=== PATIENT | female | born 1995 | race Hispanic/Latino ===

== ENCOUNTER 2018-08-16 10:48 | Emergency (ER) | payer MEDICAID, OTHER ==
--- NOTE | 2018-08-16 14:40 | ULT ---
PELVIC SONOGRAM WITH DUPLEX EVALUATION: Date: 08/16/18 HISTORY: Pelvic pain. FINDINGS: The urinary bladder is incompletely distended. Uterus has a homogeneous echotexture and is 6.5 cm. En dometrium is 0.8 cm. Minimal free fluid in the cul-de-sac. Physiologic amount. Right ovary is 2.7 cm length and left ovary is 2.8 cm. Small follicles associated with each ovary. Go od color and spectral Doppler flow. IMPRESSION: No significant abnormalities demonstrated. No visualized. POS: [facility]
== END 2018-08-16 14:37 | disposition home or self-care (01) ==
LOC: ERS 10:48
DX: R10.30 Lower abdominal pain, unspecified (principal); Z87.891 Personal history of nicotine dependence
CPT/HCPCS: 36415; 76856; 84702; 86900; 86901; 87480; 87510; 87660

== ENCOUNTER 2019-07-27 19:09 | Day surgery (SDC) | payer OTHER ==
[2019-07-27] MEDS ORDERED: hydrALAZINE 20 MG/ML VIAL SLOW IVP PRN (19:42)
--- NOTE | 2019-07-27 19:44 | PDOC.LDHP ---
Labor and Delivery H&P Chief complaint: contractions (sex within last 24 hrs (yesterday AM and PM)), loss of fluid (small leaks but no large gush of fluid, no VB) HPI: 23 yo with EDC 12/2 at 31.2 weeks with some few CTX and possible lof for a few days, but good FM, no gush of fluid, no VB. No fevers Current gestational age (weeks): 31 (2days) Due date: 09/26/19 Dating criteria: last menstrual period Grav: 2 Para: 0 OB History Details: SAB Jul 2018 Current complications: none Abnormal US findings: No Current medications: pre-patience vitamins Previous surgical history: none Allergies/Adverse Reactions: Allergies Allergy/AdvReac Type Severity Reaction Status Date / Time amoxicillin Allergy Verified 07/27/19 19:35 Penicillins Allergy Verified 07/27/19 19:35 - Physical Exam Vital signs reviewed and normal: yes (131/70 80 afebrile) General: NAD Heart: RRR Abdomen: gravid FHT: category 1, variability present [place] contractions every: none - Vaginal Exam cm dilated: 0 (visually closed) - Assessment 31 weeks discomforts of , . Recent sexual activity. Yeast infection on speculum exam. - Plan Plan: observation in L&D (SSE performed by me: valsalva neg, no evidence ROM, yeast noted visually (will order Diflucan x 1). sent anyway as lab confirmation, and we will order TVCL for record.)
[2019-07-27 19:55] VITALS: BP 131/70; TEMP 98.8; BMI 30.2
[2019-07-27 20:08] LABS: Amnisure Test No Membranes Rupture (No Rupture)
[2019-07-27 20:09] LABS: Amnisure Internal Control QC ACCEPTABLE (ACCEPTABLE)
[2019-07-27] MEDS ORDERED: FLU VACC QS2019-20(6MOS UP)/PF 60 MCG/0.5 ML SYRINGE IM ONE (21:00)
--- NOTE | 2019-07-27 21:10 | PDOC.EVN ---
Event Note - Event Note Event Note: NEG CX by manuel 3.6cm OK for DC home
[2019-07-27] MEDS: Fluconazole 100 MG TAB PO SCH ×2 (21:11→21:12)
--- NOTE | 2019-07-27 21:31 | ULT ---
ULTRASOUND OBSTETRICAL LIMITED: DATE: 07/27/2019 HISTORY: 23-year-old female in third trimester with uterine contractions. Specific informati on needed is cervical length. FINDINGS: number: gay lie: Cephalic Maternal cervix: 3.7 cm. Closed. Placenta: Anterior. No placenta previa. heart rate: 152 bpm Amniotic fluid volume: PAGE not measured. anatomy: Not evaluated biometry: Not evaluated IMPRESSION: 1) Live 3rd trimester intrauterine gestation. 2) maternal cervix closed and 3.7 cm in length. 3) cephalic lie.
== END 2019-07-27 21:35 | disposition home or self-care (01) ==
LOC: L&D/OP 19:09
PROVIDERS: ATTEND Student in an Organized Health Care Education/Training Program
DX: O47.03 False labor before 37 completed weeks of gestation, third trimester (principal); O99.89 Other specified diseases and conditions complicating pregnancy, childbirth and the puerperium; N89.8 Other specified noninflammatory disorders of vagina; O98.813 Other maternal infectious and parasitic diseases complicating pregnancy, third trimester; B37.9 Candidiasis, unspecified; Z3A.31 31 weeks gestation of pregnancy; Z88.0 Allergy status to penicillin
CPT/HCPCS: 76856; 84112; 99284

== ENCOUNTER 2019-08-19 02:04 | Day surgery (SDC) | payer OTHER ==
[2019-08-19 02:34] VITALS: BMI 29.2
[2019-08-19] MEDS ORDERED: hydrALAZINE 20 MG/ML VIAL SLOW IVP PRN (04:06)
--- NOTE | 2019-08-19 06:39 | ER ---
DATE OF SERVICE: 08/19/2019 OB ED NOTE: TIME OF SERVICE: 0410 hours. PRESENTING COMPLAINT: Vaginal bleeding after intercourse at 34 weeks gestation. HISTORY OF PRESENT ILLNESS: The patient presents complaining of vaginal spotting after intercourse this evening. She denies contractions. She denies discharge. She reports active fetus. OBSTETRIC HISTORY: Patient is seen at [facility] since February. The patient was originally seen by Dr. Tierra Milner, but changed doctors over personality conflicts. Ultrasound reveals AGA baby at last exam. The patient has a history of recreational drug use disorder with positive urine drug screens during . Last urine drug screen was in June and was negative for cannabinoids, which is the patient's street drug of choice. Blood type A negative, antibody negative. Pap negative. Rubella immune. VDRL nonreactive. Group B strep positive urine. The patient has a history of genital herpes. Has not started her suppression at this time. PAST MEDICAL HISTORY: Mild asthma. PAST SURGICAL HISTORY: None. ALLERGIES: AMOXICILLIN. MEDICATIONS: vitamins and sertraline 50 mg p.o. daily. SOCIAL HISTORY: Denies current tobacco, alcohol, or drug abuse. FAMILY HISTORY: Noncontributory. REVIEW OF SYSTEMS: Noncontributory. PHYSICAL EXAMINATION: GENERAL: The patient and her partner are in the exam room. Exam room reeks of marijuana. The patient does not seem obviously intoxicated. VITAL SIGNS: Temperature 98.5, respirations 18, blood pressure 122/82, and pulse 85. HEENT: Within normal limits. LUNGS: Clear to auscultation bilaterally. HEART: Regular rate and rhythm. ABDOMEN: Soft and nontender with a fundal height of 34 cm. FHTs are 140s. Vulva without lesions. Speculum exam reveals vagina that is without discharge with mild leukorrhea of . The cervix is visually closed. EXTREMITIES: Without clubbing, cyanosis, or edema. Prolonged monitoring was carried out. No contractions were noted. Positive accelerations. No decelerations, category 1 heart rate tracing. IMPRESSION: 1. Vaginal spotting with no current bleeding and no evidence of labor status post intercourse at 34 weeks gestation. 2. History of recreational drug use. Current encounter would reflect partner drug use, but no evidence of active drug use at this time by patient. PLAN: Discharge home. The patient has scheduled followup with Dr. Porter this morning at [facility]. The patient is encouraged to avoid use of cannabinoids or other recreational drugs during the remainder of . Job ID: [id number]
[2019-08-19] MEDS ORDERED: FLU VACC QS2019-20(6MOS UP)/PF 60 MCG/0.5 ML SYRINGE IM ONE (09:00)
== END 2019-08-19 04:10 | disposition home or self-care (01) ==
LOC: L&D/OP 02:04
PROVIDERS: ATTEND Student in an Organized Health Care Education/Training Program
DX: O26.853 Spotting complicating pregnancy, third trimester (principal); Z3A.34 34 weeks gestation of pregnancy; Z79.899 Other long term (current) drug therapy; Z88.0 Allergy status to penicillin
CPT/HCPCS: 99282

== ENCOUNTER 2019-09-18 23:48 | Inpatient (IN) | payer OTHER ==
[2019-09-19 00:28] VITALS: BMI 31.8
[2019-09-19 00:30] LABS: Amnisure Internal Control QC ACCEPTABLE (ACCEPTABLE)
[2019-09-19 00:38] LABS: Amnisure Test No Membranes Rupture (No Rupture)
[2019-09-19] MEDS ORDERED: Lidocaine 1% (PF) 30 ML VIAL SC PRN (00:55)
[2019-09-19] MEDS ORDERED: Ibuprofen 800 MG TAB PO PRN (00:55)
[2019-09-19] MEDS ORDERED: hydrALAZINE 20 MG/ML VIAL SLOW IVP PRN ×2 (00:55→19:28)
[2019-09-19] MEDS ORDERED: Methylergonovine 0.2 MG/ML VIAL IM PRN (00:55)
[2019-09-19] MEDS ORDERED: Ondansetron PF 4 MG/2 ML Vial IVP PRN ×3 (00:55→19:28)
[2019-09-19] MEDS ORDERED: Promethazine HCl 25 MG/ML VIAL IM PRN ×3 (00:55→19:28)
[2019-09-19] MEDS ORDERED: Acetaminophen/Codeine 30-300mg Tablet PO PRN ×2 (00:55)
[2019-09-19] MEDS ORDERED: Misoprostol 200 MCG TAB PR PRN (00:55)
[2019-09-19] MEDS ORDERED: Zolpidem Tartrate 5 MG TAB PO PRN (00:55)
--- NOTE | 2019-09-19 01:00 | PDOC.LDHP ---
Labor and Delivery H&P Chief complaint: contractions HPI: 23 yo LAF c/o painful UCs since 10 PM. Scheduled for induction for tonight. Current gestational age (weeks): 39 Due date: 09/26/19 Dating criteria: last menstrual period Grav: 1 Para: 0 OB History Details: PNC with DR. Porter w/o complications. Current complications: none Abnormal US findings: No Current medications: pre- vitamins Previous surgical history: none Allergies/Adverse Reactions: Allergies Allergy/AdvReac Type Severity Reaction Status Date / Time amoxicillin Allergy Verified 09/19/19 00:24 Penicillins Allergy Verified 07/27/19 19:35 Social history: none - Physical Exam Vital signs reviewed and normal: yes General: resting Heart: RRR Lungs: CTAB Abdomen: gravid Extremeties: trace edema FHT: category 1 [place] contractions every: q 2-3 mins - Vaginal Exam cm dilated: 3 Effacement: 90% Station: -1 - OB Labs GBS: positive - Assessment L&D Assessment: term patient in labor - Plan Plan: admit to L&D, GBS antibiotic prophylaxis, informed consent obtained (Dr. Porter notified of admit.)
[2019-09-19] MEDS ORDERED: NS w/ Oxytocin 10 units 500 ML IV SCH (01:30)
[2019-09-19] MEDS ORDERED: Lactated Ringer's 1,000 ML IV SCH (01:30)
[2019-09-19] MEDS: ceFAZolin 1 GM/D5W 1 GM in Premix Bag 1 BAG IVPB SCH ×3 (01:48→20:47)
[2019-09-19 01:54] LABS: Hemoglobin 12.1 g/dL (12.0-16.0); Mean Corpuscular HGB CONC 33.8 g/dL (32.0-36.0); Mean Corpuscular Hemoglobin 29.7 pg (27.0-31.0); Mean Corpuscular Volume 87.8 fL (78.0-98.0); Mean Platelet Volume 9.3 fL (7.4-10.4); Platelet Count 229 thou/uL (130-400); RBC Distribution Width 13.3 % (11.5-14.5); Red Blood Cell (RBC) Count 4.06 mill/uL (4.20-5.40); White Blood Cell (WBC) Count 17.4 thou/uL (4.8-10.8)
[2019-09-19 02:33] LABS: HBSAg Index 0.14 S/CO (0-0.99); Hep B Surf Ag Non-Reactive S/CO (NonReactive)
[2019-09-19] MEDS: Butorphanol Tartrate 1 MG/ML VIAL SLOW IVP PRN ×2 (02:57→05:05)
[2019-09-19 04:12] LABS: Syphilis Antibody Nonreactive (Nonreactive); Syphilis Antibody Index 0.03 S/CO (<1.00 Non-Reactive)
[2019-09-19 05:40] LABS: ALT (SGPT) 16 U/L (8-55); AST (SGOT) 15 U/L (5-34); Albumin 3.8 g/dL (3.5-5.0); Alkaline Phosphatase 293 U/L (40-110); Anion Gap 15 mmol/L (10-20); BUN (Urea Nitrogen) 8 mg/dL (7.0-18.7); Bilirubin, Total 0.3 mg/dL (0.2-1.2); Calc. Creatinine Clearance 160 mL/min (70-130); Calcium 9.3 mg/dL (7.8-10.44); Carbon Dioxide 19 mmol/L (22-29); Chloride 105 mmol/L (98-107); Estimated GFR-MDRD Greater than 90; Globulin 2.9 g/dL (2.4-3.5); Glucose 98 mg/dL (70-105); Potassium 3.9 mmol/L (3.5-5.1); Protein, Total 6.7 g/dL (6.0-8.3); Sodium 135 mmol/L (136-145)
[2019-09-19 06:07] LABS: Amphetamine Not Detected (NotDetected); Barbiturates Screen Not Detected (NotDetected); Benzodiazepine Screen Not Detected (NotDetected); Cocaine Metabolite Screen Not Detected (NotDetected); Medtox Control Line Valid? VALID (VALID); Medtox Reader # READER 4; Methadone Not Detected (NotDetected); Methamphetamine Not Detected (NotDetected); Opiate Screen Not Detected (NotDetected); Oxycodone Screen Not Detected (NotDetected); Phencyclidine (PCP) Not Detected (NotDetected); THC/Cannabinoid Screen Detected (NotDetected); Tricyclic Screen Not Detected (NotDetected)
[2019-09-19 06:30] LABS: Creatinine, Urine 23.13 mg/dL (47-110); Protein, Urine Random Quant Less than 10 mg/dL (1-14)
[2019-09-19] MEDS ORDERED: Fentanyl 4 mcg/Bup 0.1% Cadd 100 ML ONE ×2 (06:34→13:27)
[2019-09-19] MEDS ORDERED: Fentanyl 100 MCG/2 ML VIAL ONE (06:44)
--- NOTE | 2019-09-19 09:52 | PDOC.LDPN ---
Labor & Delivery Progress Note - Subjective Subjective: comfortable - Objective Vital signs reviewed and normal: yes General: NAD Uterine fundus: non tender Dilation: 5 Effacement: 90% Station: -1 FHT: category 1 [place] contractions every: 4min AROM: clear fluid Plan: labor augmentation
[2019-09-19] MEDS: Lactated Ringer's 1,000 ML IV SCH ×2 (09:57→19:32)
[2019-09-19] MEDS ORDERED: Lactated Ringer's 500 ML IV PRN (12:10)
[2019-09-19] MEDS ORDERED: Naloxone HCl 0.4 mg/ml Vial IVP PRN ×2 (12:10)
[2019-09-19] MEDS ORDERED: ePHEDrine/0.9% NaCl/PF SYRINGE 50 mg/10 ml SLOW IVP PRN (12:10)
[2019-09-19] MEDS ORDERED: Acetaminophen 325 MG TAB PO PRN (12:10)
[2019-09-19] MEDS ORDERED: diphenhydrAMINE 50 MG/ML VIAL IVP PRN (12:10)
[2019-09-19] MEDS ORDERED: Fentanyl 4 mcg/Bupivacaine 0.1% Cassette 100 ML EPIDURAL SCH (12:15)
[2019-09-19] MEDS ORDERED: Communication Order-Pharmacy FS SCH (12:15)
[2019-09-19] MEDS ORDERED: Acetaminophen 500 MG TAB PO PRN (13:38)
[2019-09-19] MEDS ORDERED: Gentamicin 20 MG/2 ML PF (Neonates) IVPB SCH (13:45)
[2019-09-19] MEDS ORDERED: Gentamicin Sulfate 290 MG in Sodium Chloride 0.9% 100 ML IVPB SCH (15:00)
[2019-09-19] MEDS: NS / Oxytocin 40 units/1000ml 1,000 ML IV PRN ×2 (16:15→17:40)
--- NOTE | 2019-09-19 17:24 | PDOC.OPDEL ---
OB Operative/Delivery Note Delivery Dr/Surgeon: [place] Assist: n/a Pre-Delivery Diagnosis: active labor (, GHTN, chorioamnionitis) Procedure/Post Delivery Dx: spontaneous vaginal delivery Weeks gestation: 39 Anesthesia: epidural - Findings A Sex: female Weight: 5 lb 15 oz - 1 min: 5 - 5 min: 9 - Additional Findings/Plan Placenta delivered: spontaneous Repaired Obstetrical Laceration: none Estimated blood loss: 25cc Post delivery plan: routine recovery
[2019-09-19] MEDS ORDERED: Lanolin Ointment 7 GM TUBE TOP PRN (19:28)
[2019-09-19] MEDS ORDERED: NS / Oxytocin 40 units/1000ml 1,000 ML IV SCH (19:28)
[2019-09-19] MEDS ORDERED: HYDROcodone/Acetaminophen 5/325 mg Tablet PO PRN ×2 (19:28)
[2019-09-19] MEDS ORDERED: diphenhydrAMINE 25 MG CAP PO PRN (19:28)
[2019-09-19] MEDS ORDERED: Bisacodyl 10 MG SUPP PR PRN (19:28)
[2019-09-19] MEDS ORDERED: Adacel (T-DAP) 0.5 ML SYRINGE IM ONE (19:28)
[2019-09-19] MEDS ORDERED: Preparation H Ointment 28 GM TUBE PR PRN (19:28)
[2019-09-19] MEDS ORDERED: Milk Of Magnesia 30 ML UDCUP PO PRN (19:28)
[2019-09-19] MEDS ORDERED: Benzocaine-Menthol 82.5 ML CAN TOP PRN (19:28)
[2019-09-19] MEDS: Docusate Calcium (SURFAK) 240 MG CAP PO SCH (21:00)
[2019-09-19] MEDS ORDERED: Ibuprofen 800 MG TAB PO SCH (22:00)
[2019-09-20] MEDS: Ibuprofen 800 MG TAB PO SCH ×3 (01:15→17:54)
[2019-09-20] MEDS: Docusate Calcium (SURFAK) 240 MG CAP PO SCH (08:25)
[2019-09-20] MEDS: Prenatal Vitamin 1 TAB PO SCH (08:25)
[2019-09-20] MEDS: Ferrous Sulfate 325 MG TAB PO SCH ×2 (08:26→16:16)
[2019-09-21] MEDS: Docusate Calcium (SURFAK) 240 MG CAP PO SCH ×2 (02:08→09:45)
[2019-09-21] MEDS: Ibuprofen 800 MG TAB PO SCH ×2 (02:08→09:45)
--- NOTE | 2019-09-21 08:16 | PDOC.PP ---
Post Progress Note Post Day #: 2 Subjective: Pt is doing well on PPD2. Pt has minimal lochia. Pain well controlled. She has been up and ambulatory. She is urinating normally. Baby is still in NICU at this time and she is pumping. She has no CP,SOB or leg swelling. PO intake tolerated: yes Flatus: yes Ambulation: yes Weight Weight 158 lb - Physical Examination General: NAD Respiratory: non-labored breathing Abdominal: + bowel sounds, lochia, no distention, appropriately TTP Extremities: negative homans (B) Skin: no rash Neurological: no gross focal deficits Psychiatric: A&Ox3, normal affect Result Diagrams: 09/19/19 01:44 09/19/19 01:44 Additional Labs: Post Labs Blood Type A NEGATIVE 09/19/19 01:44 Hep Bs Antigen Non-Reactive S/CO (NonReactive) 09/19/19 01:44 (1) Vaginal delivery Code(s): O80 - ENCOUNTER FOR FULL-TERM UNCOMPLICATED DELIVERY Status: Acute - Assessment/Plan Pt doing well on PPD2. Plan for discharge this am to [facility] as baby is still in NICU. Discharge planning discussed. She will take OTC motrin every 6-8 hours as needed for pain. She will follow up with our office in 6 weeks.
[2019-09-21 08:23] VITALS: BP 106/57; TEMP 98.4
[2019-09-21] MEDS: Prenatal Vitamin 1 TAB PO SCH (09:45)
[2019-09-21] MEDS: Ferrous Sulfate 325 MG TAB PO SCH (09:45)
== END 2019-09-21 14:15 | disposition home or self-care (01) | DRG 805 ==
LOC: L&D/OP 23:48 → L&D 09-19 00:55 → 3SW 09-19 20:26
PROVIDERS: ADMIT Obstetrics & Gynecology; ATTEND Obstetrics & Gynecology
PROC: 10E0XZZ Delivery of Products of Conception, External Approach (ICD-10-PCS; principal; 2019-09-19)
PROC: 10907ZC Drainage of Amniotic Fluid, Therapeutic from Products of Conception, Via Natural or Artificial Opening (ICD-10-PCS; 2019-09-19)
DX: O99.824 Streptococcus B carrier state complicating childbirth (principal); O41.1230 Chorioamnionitis, third trimester, not applicable or unspecified; Z37.0 Single live birth; O13.4 Gestational [pregnancy-induced] hypertension without significant proteinuria, complicating childbirth; Z3A.39 39 weeks gestation of pregnancy
CPT/HCPCS: 36415; 51702; 80053; 80306; 82570; 84112; 84156; 85027; 85461; 86780; 86850; 86870; 86900; 86901; 87340; 90384; 96372; 99285; J0595; J0690; J1580; J2590; J3010; J3490

== ENCOUNTER 2020-02-21 11:20 | Emergency (ER) | payer OTHER, SELFPAY | END 2020-02-21 11:41 | disposition home or self-care (01) | LOC: ERS 11:20 | DX: Z32.01 Encounter for pregnancy test, result positive (principal); Z87.891 Personal history of nicotine dependence | CPT/HCPCS: 99281 ==

== ENCOUNTER 2021-03-07 15:36 | Emergency (ER) | payer SELFPAY ==
[2021-03-07 16:35] LABS: Bilirubin Negative (Negative); Blood, Urine Negative (Negative); Clarity Clear (Clear); Glucose, Urine (Dipstick) Normal (Negative); Ketone, Urine Negative (Negative); Leukocyte Negative Leu/uL (Negative); Nitrite Negative (Negative); Protein, Urine (Dipstick) Negative (Neg-Trace); Urobilinogen Normal mg/dL (Less than 2); pH, Urine 5.5 (5.0-9.0)
== END 2021-03-07 17:05 | disposition home or self-care (01) ==
LOC: ERS 15:36
DX: Z71.1 Person with feared health complaint in whom no diagnosis is made (principal); Z87.891 Personal history of nicotine dependence
CPT/HCPCS: 36415; 76856; 81003; 84702

== ENCOUNTER 2021-06-29 14:20 | Emergency (ER) | payer SELFPAY ==
[2021-06-29] MEDS ORDERED: Ondansetron ODT 4 MG TAB ONE (15:03)
[2021-06-29 15:25] LABS: BHCG - Serum Negative (NEGATIVE); Pregs Control Background? CLEAR/WHITE (CLR/WHITE); Pregs Control Bar Appear? YES (CONTROL BAR)
[2021-06-30 09:55] LABS: SARS-CoV-2 PCR by NAA Not Detected (NotDetected)
== END 2021-06-29 15:40 | disposition home or self-care (01) ==
LOC: ERS 14:20
DX: R11.2 Nausea with vomiting, unspecified (principal); Z20.822 Contact with and (suspected) exposure to COVID-19; Z87.891 Personal history of nicotine dependence
CPT/HCPCS: 36415; 84703; 99284; Q0162; U0003; U0005

== ENCOUNTER 2022-08-06 08:39 | Emergency (ER) | payer OTHER, SELFPAY | END 2022-08-06 09:20 | disposition home or self-care (01) | LOC: ERS 08:39 | DX: J06.9 Acute upper respiratory infection, unspecified (principal) | CPT/HCPCS: 71045 ==

== ENCOUNTER 2022-12-09 20:16 | Emergency (ER) | payer OTHER, SELFPAY ==
[2022-12-09 20:56] LABS: #Eosinphils 0.2 thou/uL (0.0-0.7); #Lymphocytes 2.3 thou/uL (1.20-3.40); #Monocytes 0.6 thou/uL (0.11-0.59); #Neutrophils 11.1 thou/uL (1.40-6.50); %Basophils 0.3 % (0.0-1.0); %Eosinophils 1.1 % (0.0-10.0); %Lymphocytes 16.2 % (21.0-51.0); %Monocytes 4.4 % (0.0-10.0); Mean Corpuscular Hemoglobin 30.9 pg (27.0-31.0); Mean Corpuscular Volume 91.1 fl (78.0-98.0); Mean Platelet Volume 8.8 fL (7.4-10.4); Platelet Count 199 10x3/uL (130-400); RBC Distribution Width 12.1 % (11.5-14.5); Red Blood Cell (RBC) Count 3.56 mill/uL (4.20-5.40); White Blood Cell (WBC) Count 14.2 10x3/uL (4.8-10.8)
[2022-12-09 21:12] LABS: ALT (SGPT) 33 U/L (8-55); AST (SGOT) 24 U/L (5-34); Albumin 3.6 g/dL (3.5-5.0); Alkaline Phosphatase 62 U/L (40-110); Anion Gap 12 mmol/L (10-20); BUN (Urea Nitrogen) 6 mg/dL (7.0-18.7); Bilirubin, Total 0.4 mg/dL (0.2-1.2); Calc. Creatinine Clearance 0 mL/min (70-130); Carbon Dioxide 20 mmol/L (22-29); Chloride 107 mmol/L (98-107); Estimated GFR 129; Globulin 3.1 g/dL (2.4-3.5); Glucose 98 mg/dL (70-105); Lipase 42 U/L (8-78); Potassium 3.8 mmol/L (3.5-5.1); Protein, Total 6.7 g/dL (6.0-8.3); Sodium 135 mmol/L (136-145)
[2022-12-09 21:57] LABS: Bilirubin Negative (Negative); Blood, Urine Negative (Negative); Clarity Turbid (Clear); Glucose, Urine (Dipstick) Normal (Negative); Ketone, Urine Negative (Negative); Leukocyte Negative Leu/uL (Negative); Nitrite Negative (Negative); Protein, Urine (Dipstick) Negative (Neg-Trace); Specific Gravity, Urine 1.017 (1.002-1.036); Urobilinogen Normal mg/dL (Less than 2)
== END 2022-12-09 23:33 | disposition left against medical advice (07) ==
LOC: ERS 20:16
DX: Z53.29 Procedure and treatment not carried out because of patient's decision for other reasons (principal)
CPT/HCPCS: 36415; 76856; 80053; 81003; 83690; 84702; 85025; 93976